=== PATIENT | male | born 1965 | race Caucasian/White ===

== ENCOUNTER 2020-09-22 05:31 | Emergency (ER) | payer OTHER ==
[2020-09-22] MEDS ORDERED: DUONEB 0.5-3 MG/3 ml Neb IH ONE (05:48)
[2020-09-22] MEDS: DUONEB 0.5-3 MG/3 ml Neb IH ONE (05:50)
--- NOTE | 2020-09-22 05:55 | ERPHSYRPT ---
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 pt a2ox3 was able to walk self to cot Physician History: This is a 54-year-old obese white male who lives in [place] and was diagnosed 2 weeks ago with pneumonia. He was placed on a steroid pack and Levaquin. Patient stated that he appeared to be improving after completion of his steroid pack and Levaquin. However his symptoms worsen the last 2 to 3 days. Approximate 4 hours ago he was acutely short of breath and coughing. Patient is here in [place] visiting after making the trip in a vehicle. He denies calf pain. His complaint is cough and shortness of breath. Timing/Duration: day(s) (2-3) Activities at Onset: activity Severity of Dyspnea-Max: moderate Severity of Dyspnea-Current: moderate Possible Cause: occasional episodes Modifying Factors: Improves With: activity, coughing Associated Symptoms: cough, chest pain/discomfort (With coughing), No hemoptysis, No calf pain Allergies/Adverse Reactions: amoxicillin [From Augmentin] Adverse Reaction (Intermediate, Verified 09/22/20 05:41) abdominal pain clavulanic acid [From Augmentin] Adverse Reaction (Intermediate, Verified 09/22/20 05:41) abdominal pain Home Medications: Albuterol Common Canister [Ventolin Common Canister] 2 puff IH Q4H 09/22/20 [History] Guaifenesin/Codeine Phos [Guaiatussin AC Liquid] 5 ml PO Q4H PRN 09/22/20 [History] Travel Risk - International Travel Have you traveled outside of the country in past 3 weeks: No - Coronavirus Screening Are you exhibiting any of the following symptoms?: No Symptoms: Cough: New Onset, Shortness of Breath Close contact with a COVID-19 positive Pt in past 14-21 Days: No - Vaccine Status Have you recieved a Covid-19 vaccination: No - Review of Systems Constitutional: No Symptoms Eyes: No Symptoms Ears, Nose, & Throat: No Symptoms Respiratory: Cough, Dyspnea, Wheezing Cardiac: Chest Pain (Cough) Abdominal/Gastrointestinal: No Symptoms Genitourinary Symptoms: No Symptoms Musculoskeletal: No Symptoms Skin: No Symptoms Neurological: No Symptoms Psychological: No Symptoms Endocrine: No Symptoms Hematologic/Lymphatic: No Symptoms Immunological/Allergic: No Symptoms All Other Systems: Reviewed and Negative - Past Medical History Pertinent Past Medical History: No - Past Surgical History Past Surgical History: Yes - Social History Smoking Status: Never smoker Drug Use: none - Nursing Vital Signs Nursing Vital Signs: Initial Vital Signs Temperature 96.7 F 09/22/20 05:33 Pulse Rate 88 09/22/20 05:33 Respiratory Rate 28 H 09/22/20 05:33 Blood Pressure 171/80 09/22/20 05:33 O2 Sat by Pulse Oximetry 98 09/22/20 05:33 Pain Scale Pain Intensity 0 - Physical Exam General Appearance: mild distress, alert, anxiety, obese Eye Exam: PERRL/EOMI, eyes nml inspection Ears, Nose, Throat Exam: hearing grossly normal, normal ENT inspection, normal pharynx Neck Exam: normal inspection, non-tender, supple, full range of motion Respiratory Exam: respiratory distress (Mild), airway intact, wheezing (Diffuse bilaterally worse in the left lower base) Cardiovascular/Chest Exam: normal heart sounds, regular rate/rhythm Abdominal/Gastrointestinal Exam: soft, normal bowel sounds, No tenderness Rectal Exam: not done Extremity Exam: non-tender, normal range of motion, normal inspection Neurologic Exam: alert, oriented x 3, cooperative, 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 No comparison EKG) Ordered Tests: Active Orders 24 hr Category Date Time Status Tmr Teacher STAT Care 09/22/20 05:57 Active EKG-ER Only STAT Care 09/22/20 05:56 Active IV Insertion STAT Care 09/22/20 05:56 Active CHEST 1 VIEW (PORTABLE) Stat Exams 09/22/20 05:56 Taken CBC W DIFF Stat Lab 09/22/20 06:13 Completed CMP Stat Lab 09/22/20 06:13 Completed D-DIMER QUANTITATIVE Stat Lab 09/22/20 06:13 Completed NT PRO BNP Stat Lab 09/22/20 06:13 Completed PROTIME WITH INR Stat Lab 09/22/20 06:13 Completed TROPONIN Q3H Lab 09/22/20 06:13 Received TROPONIN Q3H Lab 09/22/20 09:00 Ordered TROPONIN Q3H Lab 09/22/20 12:00 Ordered TROPONIN Q3H Lab 09/22/20 15:00 Ordered TROPONIN Q3H Lab 09/22/20 18:00 Ordered Respiratory Therapy Assessment DAILY RT 09/22/20 05:53 Active Medication Summary Generic Name Dose Route Start Last Admin Trade Name Freq PRN Reason Stop Dose Admin Ceftriaxone Sodium/Dextrose 1 g in 50 mls @ 100 mls/hr 09/22/20 06:30 09/22/20 06:42 Rocephin 1 Gm-D5w 50 Ml Bag IV 09/22/20 06:59 100 ml/hr STAT STA 100 mls/hr Administration Discontinued Medications Generic Name Dose Route Start Last Admin Trade Name Freq PRN Reason Stop Dose Admin Hydrocodone Bitart/Acetaminophen 15 ml 09/22/20 06:15 09/22/20 06:22 Hydrocodone-Acetamin 2.5-108/5 Ml Solution PO 09/22/20 06:16 15 ml STAT STA Administration Hydrocodone Bitart/Acetaminophen Confirm 09/22/20 06:19 Hydrocodone-Acetamin 2.5-108/5 Ml Solution Administered 09/22/20 06:20 Dose 15 ml .ROUTE .STK-MED ONE Albuterol/Ipratropium 3 ml 09/22/20 05:50 09/22/20 05:50 Duoneb 0.5-3 Mg/3 Ml Neb IH 09/22/20 05:51 3 ml STAT ONE Administration Albuterol/Ipratropium Confirm 09/22/20 05:48 Duoneb 0.5-3 Mg/3 Ml Neb Administered 09/22/20 05:49 Dose 3 ml IH .STK-MED ONE Ceftriaxone Sodium/Dextrose Confirm 09/22/20 06:38 Rocephin 1 Gm-D5w 50 Ml Bag Administered 09/22/20 06:39 Dose 1 g in 50 mls @ ud IV .STK-MED ONE Methylprednisolone Sodium Succinate 125 mg 09/22/20 05:58 09/22/20 06:06 Solu-Medrol 125 Mg IV 09/22/20 05:59 125 mg STAT ONE Administration Methylprednisolone Sodium Succinate Confirm 09/22/20 06:03 Solu-Medrol 125 Mg Administered 09/22/20 06:04 Dose 125 mg .ROUTE .STK-MED ONE Lab/Rad Data: Laboratory Result Diagrams 09/22/20 06:13 09/22/20 06:13 Laboratory Results 09/22/20 09/22/20 09/22/20 Range/Units 06:13 06:13 06:13 WBC 9.6 (4.0-10.5) K/mm3 RBC 5.18 (4.1-5.6) M/mm3 Hgb 14.3 (12.5-18.0) gm/dl Hct 45.3 (42-50) % MCV 87.5 (78-100) fl MCH 27.6 (26-32) pg MCHC 31.6 L (32-36) g/dl RDW 15.2 H (11.5-14.0) % Plt Count 196 (150-450) K/mm3 MPV 11.2 H (7.5-11.0) fl Gran % 64.8 (36.0-66.0) % Eos # (Auto) 0.30 (0-0.5) Absolute Lymphs (auto) 1.71 (1.0-4.6) Absolute Monos (auto) 1.33 H (0.0-1.3) Lymphocytes % 17.9 L (24.0-44.0) % Monocytes % 13.9 H (0.0-12.0) % Eosinophils % 3.1 (0.00-5.0) % Basophils % 0.3 (0.0-0.4) % Absolute Granulocytes 6.19 (1.4-6.9) Basophils # 0.03 (0-0.4) PT 11.4 (9.4-12.5) SECONDS INR 0.97 (0.8-3.0) D-Dimer 383 (215-500) ng/mL Sodium 141 (137-145) mmol/L Potassium 3.7 (3.5-5.1) mmol/L Chloride 105 (98-107) mmol/L Carbon Dioxide 27 (22-30) mmol/L Anion Gap 13.0 (5-15) MEQ/L BUN 21 H (9-20) mg/dL Creatinine 0.73 (0.66-1.25) mg/dL Estimated GFR > 60.0 ML/MIN Glucose 214 H (74-106) mg/dL Calcium 8.4 (8.4-10.2) mg/dL Total Bilirubin 0.30 (0.2-1.3) mg/dL AST 22 (17-59) U/L ALT 25 (0-50) U/L Alkaline Phosphatase 124 (38-126) U/L NT-Pro-B Natriuret Pep 176 (0-900) pg/mL Serum Total Protein 6.6 (6.3-8.2) g/dL Albumin 3.7 (3.5-5.0) g/dL - Progress Progress: improved, re-examined Air Movement: good Progress Note: 09/22/20 06:38 Chest x-ray shows right basilar infiltrate Blood Culture(s) Obtained: Yes Antibiotics given: Yes Counseled pt/family regarding: lab results, diagnosis, need for follow-up, rad results - Departure Departure Disposition: Home Clinical Impression: Right pulmonary infiltrate on CXR Condition: Stable Critical Care Time: No Additional Instructions: Drink plenty of fluids. Take medication as prescribed. Follow-up with your primary care physician for persistent symptoms. Prescriptions: Hydrocodone/Acetaminophen [Hydrocodone-Acetamn 7.5-325/15] 10 ml PO Q8H PRN PRN #120 solution MDD 30 PRN Reason: Cough Methylprednisolone Packet [Medrol Dosepack] 4 mg PO UD #1 packet Azithromycin 250 mg [Zithromax 250 MG TABLET] 250 mg PO ZPACK #6 tablet
[2020-09-22] MEDS ORDERED: solu-MEDROL 125 MG ONE (06:03)
[2020-09-22] MEDS: solu-MEDROL 125 MG IV ONE (06:06)
[2020-09-22] MEDS ORDERED: HYDROCODONE-ACETAMIN 2.5-108/5 ML SOLUTION ONE (06:19)
[2020-09-22 06:21] LABS: INR 0.97 (0.8-3.0); PROTIME 11.4 SECONDS (9.4-12.5)
[2020-09-22 06:22] LABS: Absolute Neutrophil Ct (ANC) 6.19 (1.4-6.9); BASOPHIL % 0.3 % (0.0-0.4); Basophil (Absolute #) 0.03 (0-0.4); Eosinophil % 3.1 % (0.00-5.0); Hematocrit 45.3 % (42-50); Hemoglobin 14.3 gm/dl (12.5-18.0); Lymphocyte (Absolute #) 1.71 (1.0-4.6); Lymphocytes % 17.9 % (24.0-44.0); Mean Cell Volume 87.5 fl (78-100); Mean Corpuscular Hemoglobin 27.6 pg (26-32); Mean Corpuscular Hgb Concent. 31.6 g/dl (32-36); Mean Platelet Volume 11.2 fl (7.5-11.0); Monocyte (Absolute #) 1.33 (0.0-1.3); Monocytes % 13.9 % (0.0-12.0); Neutrophil % 64.8 % (36.0-66.0); Platelet Count 196 K/mm3 (150-450); Red Blood Count 5.18 M/mm3 (4.1-5.6); Red Cell Distribution Width 15.2 % (11.5-14.0); White Blood Count 9.6 K/mm3 (4.0-10.5)
[2020-09-22] MEDS: HYDROCODONE-ACETAMIN 2.5-108/5 ML SOLUTION PO STA (06:22)
[2020-09-22 06:36] LABS: ALBUMIN 3.7 g/dL (3.5-5.0); ALKALINE PHOSPHATASE 124 U/L (38-126); BLOOD UREA NITROGEN 21 mg/dL (9-20); CHLORIDE 105 mmol/L (98-107); Calcium 8.4 mg/dL (8.4-10.2); Carbon Dioxide 27 mmol/L (22-30); Creatinine 1 0.73 mg/dL (0.66-1.25); EST GLOMERULAR FILTRATION RATE > 60.0 ML/MIN; Glucose 214 mg/dL (74-106); NT PRO BNP 176 pg/mL (0-900); Potassium 3.7 mmol/L (3.5-5.1); SGOT/AST 22 U/L (17-59); SGPT/ALT 25 U/L (0-50); SODIUM 141 mmol/L (137-145); Total Protein 6.6 g/dL (6.3-8.2)
[2020-09-22] MEDS ORDERED: ROCEPHIN 1 Gm-D5w 50 ml Bag** 1 G/50 ML IVPB IV ONE (06:38)
[2020-09-22] MEDS: ROCEPHIN 1 Gm-D5w 50 ml Bag** 1 G/50 ML IVPB IV STA (06:42)
[2020-09-22 07:07] VITALS: BP 147/73; PULSE 71; O2SAT 96
--- NOTE | 2020-09-22 07:50 | XRAY ---
Indication: Cough and short of breath. Pneumonia. Comparison: None Portable apical lordotic demonstrates subtle asymmetric right infrahilar infiltrate versus atelectasis. Remaining heart and lungs unremarkable. Bony thorax intact with minimal degenerative changes.
== END 2020-09-22 07:12 | disposition home or self-care (01) ==
LOC: ED 05:31
DX: R91.8 Other nonspecific abnormal finding of lung field (principal)
CPT/HCPCS: 36000; 36415; 71045; 80053; 83880; 84484; 85025; 85379; 85610; 93005; 93041; 94640; 96365; 96374; 96375; 99284; J0696; J2930; A9270-GY